=== PATIENT | male | born 1940 | race Caucasian/White ===

== ENCOUNTER 2018-08-10 11:19 | Emergency (ER) | payer MEDICARE ==
[~2018-08-10] VITALS: Ht 182.9 cm; Wt 113.0 kg
[2018-08-10] MEDS ORDERED: COREG6.25 MG PO (11:28)
[2018-08-10] MEDS ORDERED: CRESTOR20 MG PO (11:29)
[2018-08-10] MEDS ORDERED: DIGOXIN0.125 MG PO (11:30)
[2018-08-10] MEDS ORDERED: LOSARTAN POTASS50 MG PO (11:30)
[2018-08-10] MEDS ORDERED: ELIQUIS2.5 MG PO (11:30)
[2018-08-10] MEDS ORDERED: AMLODIPINE5 MG PO (11:31)
[2018-08-10] MEDS ORDERED: FISH OIL1000 MG PO (11:32)
[2018-08-10] MEDS ORDERED: LYRICA50 MG PO ×2 (11:32)
[2018-08-10] MEDS ORDERED: VICTOZA18 MG/3 ML SC (11:33)
[2018-08-10] MEDS ORDERED: LANTUS100 UNIT/M SC (11:34)
[2018-08-10] MEDS ORDERED: SLO-NIACIN500 MG PO (11:35)
[2018-08-10] MEDS ORDERED: FOLIC ACID1 MG PO (11:35)
[2018-08-10] MEDS ORDERED: LASIX 40 MG40 MG/TAB PO (11:35)
[2018-08-10] MEDS ORDERED: SAW PALMETTO1000 MG PO (11:36)
[2018-08-10] MEDS ORDERED: D31000 UNIT PO (11:36)
[2018-08-10] MEDS ORDERED: QUININE SULFAT324 MG PO (11:37)
[2018-08-10] MEDS ORDERED: ASPIRIN81 MG PO (11:37)
[2018-08-10] MEDS ORDERED: TAMSULOSIN0.4 MG PO (11:42)
[2018-08-10] MEDS ORDERED: GINGER ROOT250 MG PO (11:42)
[2018-08-10] MEDS ORDERED: CO-Q 101 CAP PO (11:42)
[2018-08-10] MEDS ORDERED: MULTIVITAMIN AD1 CHW PO (11:43)
[2018-08-10] MEDS ORDERED: PRESERVISION AREDS PO (11:44)
[2018-08-10 12:05] LABS: HEMATOCRIT 35.1 % (39.0-50.0); HEMOGLOBIN 11.8 g/dl (14.0-18.0); IMMATURE GRANULOCYTES 0.3 % (0.0-5.0); MEAN CELL VOLUME 95.4 fL CALC (80.0-100.0); MEAN CORPUSCULAR HGB 32.1 pG CALC (26.0-32.0); MEAN CORPUSCULAR HGB CONC 33.6 g/L CALC (32.0-36.0); NEUT# 5.62 thou/uL (1.82-7.42); RED BLOOD COUNT 3.68 mill/uL (4.70-6.10); RED CELL DISTRI WIDTH 12.2 % (11.5-15.5)
[2018-08-10 12:07] LABS: INTERNATIONAL NORMALIZED RATIO 1.1 RATIO (0.7-1.3); PROTHROMBIN TIME 11.1 SECONDS (9.0-12.5)
[2018-08-10 12:14] LABS: ALBUMIN 4.1 g/dL (3.2-5.0); BILIRUBIN, TOTAL 0.6 mg/dL (0.0-1.4); CREATININE 2.2 mg/dL (0.7-1.3); POTASSIUM 4.9 mmol/l (3.5-5.1); TOTAL PROTEIN 6.9 g/dL (6.3-8.2)
[2018-08-10 12:46] VITALS: BP 162/77
== END 2018-08-10 12:47 | disposition short-term general hospital (02) ==
LOC: ED 11:19
PROVIDERS: Emergency Medicine
DX: I63.9 Cerebral infarction, unspecified (principal); H53.2 Diplopia; R47.81 Slurred speech; R29.810 Facial weakness; R29.703 NIHSS score 3; I10 Essential (primary) hypertension; E11.9 Type 2 diabetes mellitus without complications; Z79.4 Long term (current) use of insulin; I48.91 Unspecified atrial fibrillation; Z95.5 Presence of coronary angioplasty implant and graft